=== PATIENT | female | born 1955 | race Caucasian/White ===

== ENCOUNTER 2017-10-27 06:20 | Inpatient (IN) | payer OTHER ==
[2017-10-14 08:50] LABS: ABSOLUTE BASOPHILS 0.1 thou/uL (0.0-0.2); ABSOLUTE EOSINOPHILS 0.1 thou/uL (0.0-0.7); ABSOLUTE LYMPHOCYTES 2.4 thou/uL (0.8-5.3); ABSOLUTE MONOCYTES 0.7 thou/uL (0.0-1.2); EOSINOPHILS 1.5 %; HEMATOCRIT 42.7 % (37.0-47.0); HEMOGLOBIN 14.2 gm/dL (12.0-15.0); LYMPHOCYTES 28.6 %; MCH 28.5 pg (26.0-34.0); MCHC 33.3 g/dL (28.0-37.0); MCV 85.7 fL (80.0-100.0); MONOCYTES 8.1 %; MPV 7.8 fl. (7.2-11.1); NUCLEATED RBCS 0 /100WBC; PLATELET COUNT* 269 thou/uL (150-400); POLYS 60.8 %; RBC 4.98 mil/uL (4.20-5.00); RDW-CV 15.4 % (10.5-14.5); WBC 8.2 thou/uL (4.0-11.0)
[2017-10-14 08:59] LABS: INR 1.1; PROTIME 10.4 Seconds (9.20-11.50)
[2017-10-14 09:03] LABS: ALBUMIN 3.4 g/dL (3.4-5.0); CREATININE 0.9 mg/dL (0.6-1.3); POTASSIUM 3.8 mmol/L (3.5-5.1); TOTAL BILIRUBIN 0.4 mg/dL (<0.1-1.0); TOTAL PROTEIN 7.4 g/dL (6.4-8.2)
[2017-10-14 10:16] LABS: ESR (SEDRATE) 25 mm/hr (0-30)
[2017-10-15 02:07] LABS: GLYCOHEMOGLOBIN (HGB A1C) 5.8 % (4.8-5.6)
--- NOTE | 2017-10-15 09:12 | EKG ---
[place] [address] ELECTROCARDIOGRAM REPORT Name: LI PEREZ Room: PRE IN [facility]#: [id number] Admission: Attend Phys: Luis Francisco Discharge: Date of : 53 Report #: [id number] THIS REPORT FOR: //name// [facility] Test Date: 2017-10-14 Test Time: 09:00:16 Pat Name: LI PEREZ Department: Room: Gender: F Hand Decorator: : 1955 Requested By: Gary Cruz Order Number: [id number] Callie MD: Rashid Son Measurements Intervals [place] Rate: 64 P: 2 IA: 161 QRS: -35 QRSD: 92 T: 10 QT: 438 QTc: 452 Interpretive Statements Sinus rhythm Left axis deviation Compared to ECG 03/07/2014 10:23:14 Left ventricular hypertrophy now present Sinus bradycardia no longer present Electronically Signed On 10-15-2017 9:11:58 CDT by Rashid Son [email or web address] <ELECTRONICALLY SIGNED> By: Rashid Son MD, [facility] 10/15/17910 9 9 Rashid Son MD, FACC /EPI
[~2017-10-27] VITALS: Ht 160 cm; Wt 149.2 kg
[~2017-10-27 06:20] MED LIST: ACETAMINOPHEN1 EACH PO; ASPIRIN325 PO; ATIVAN1 MG PO; COLACE100 MG PO; COZAAR 25 MG TA25 M1 PO; LOPRESSOR50 PO; MOBIC15 MG PO; NORCO 5-325 TA1 EACH PO; OXYCODONE HCL 55 MG PO; PAXIL10 MG PO; PEPCID20 MG PO; PROTONIX 20 MG20 M1 PO; SALONPAS PAIN118 ML TOP; TRAMADOL 50 MG50 MG PO; TUMS PO; XANAX 0.25 MG0.25 MG PO; XARELTO10 MG PO; [UNRECOGNIZED DRUG - OTHER]; [UNRECOGNIZED DRUG - OTHER] PO
[2017-10-27 08:45] VITALS: BP 151/85
[2017-10-27 16:00] VITALS: BP 136/90
--- NOTE | 2017-10-27 18:41 | NUR ---
ASSUMED CARES OF PT FROM PACU AT 1535. PT IN BED, BED IN LOW LOCKED POSITION, CALL BUTTON AND PERSONAL ITEMS IN PT REACH. PT SIGNIFICANT OTHER AT SIDE, WANTS TO STAY THE NIGHT. PT A&O X4, HRRR PER AUSCULTATION, LCTAB/DIMINISHED IN LL BILATERALLY. VSS ON 3L O2 NC, OCC TACHYCARDIAC HR. AFEBRILE, PERRLA, PAIN DIFFICULT TO CONTROL, SOME NAUSEA REPORTED, ZOFRAN ADMINISTERED. PEDAL AND RADIAL PULSES WNL, PITTING EDEMA LE BILATERALLY +1-2. 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 JADYN HOSE ON LEFT LEG, RIGHT LEG WRAPPED TO LARGE FOR JADYN HOSE AT THIS TIME. BILATERAL FOOT PUMPS IN PLACE. POLAR PACK IN PLACE ON RIGHT SURGICAL KNEE. LEFT 20 GAUGE FA IV PATENT WITH NS 100/ML/HR. ARNULFO WRAP ON SURGICAL RIGHT KNEE BY DR. GA. PT EXHIBITS ANXIETY OCC. HX HTN AND GERD. CONSULTS CM, SURGERY, OT, PT AND RT. REGULAR DIET. PT PRESENTLY RESTING IN BED, ASLEEP. WILL CONTINUE TO MONITOR AND REPORT TO STUDY LEAD FOR CONTINUED CARES. HOURLY ROUNDING COMPLETED.
[2017-10-27 21:30] VITALS: BP 152/94
--- NOTE | 2017-10-28 04:40 | NUR ---
PATIENT HAS BEEN SLEEPING OFF AND ON DURING THE NIGHT. PAIN MEDICATIONS GIVEN NEEDED AND CHARTED. VSS ON 3L 02 VIA NASAL CANNULA AND CAPNO IN PLACE. PATIENT REMAINS ON CONTACT ISOLATION D/T MRSA OF NARES. DRESSING TO RIGHT KNEE IS C/D/I, JADYN LATRICIAE, SCD'S AND POLAR CARE IN PLACE. IV IN LEFT FOREARM-NS @ 100ML/HR. IV ABT GIVEN WITHOUT ANY ADVERSE SIDE EFFECTS NOTED. PATIENT HAS HAD SOME SLIGHT NAUSEA WITH VERY SCANT AMOUNT OF EMESIS. IV ZOFRAN GIVEN. PATIENT INSTRUCTED TO USE CALL LIGHT WHEN NEEDING ASSISTANCE. HOURLY ROUNDS MADE. WILL CONTINUE WITH PLAN OF CARE AND NURSING TO [facility].
[2017-10-28 05:17] LABS: HEMOGLOBIN 12.4 gm/dL (12.0-15.0)
[2017-10-28 05:30] VITALS: BP 115/74
[2017-10-28 07:30] VITALS: BP 92/45
--- NOTE | 2017-10-28 09:34 | NUR ---
RECIEVED O.T. EVAL AND TX ORDERS. WILL DEFER TO P.T. AND NURSING AT THIS TIME. PLEASE ORDER FURTHER O.T. SERVICES IF NEEDED.
--- NOTE | 2017-10-28 11:39 | NUR ---
PT.UP IN RECLINER. SHE WAS ALERT AND ORIENTED. SHE LIVES WITH HER ,SOPHIE. SOPHIE WILL BE WITH HER THE FIRST WEEK AND PT.'S ADULT DAUGHTER WILL BE WITH HER THE SECOND. PT.HAS A WALKER,WHICH IS HERE IN ROOM. ALSO HAS A STOOL RISER AND SHOWER CHAIR. WANTS TO USE [facility] FOR HOME HEALTH THE FIRST 2 WEEKS AND THEN WANTS OUTPT.THERAPY. 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 SHE IS HAVING PROBLEMS WITH PAIN CONTROL THIS AM BUT SAID HER NURSE IS WONDERFUL AND IS ON TOP OF EVERYTHING. DISCUSSED BLOOD THINNER AND POLAR PACK WITH PT. CM WILL MAKE REFERRAL TO [facility] FOR HH.
[2017-10-28 16:47] VITALS: BP 116/50
--- NOTE | 2017-10-28 18:13 | NUR ---
ALERT AND ORIENTED X4. UP WITH ASSIST X1 WITH WALKER AND GAIT BELT. IV IS PATENT AND SALINE LOCKED. PAIN BEING MANAGED WITH PO PAIN MEDICATION. DENIES NAUSEA. ATTENDED THERAPY THIS AM AND PM. POLAR CARE IN PLACE. DRESSING C/D/I. VSS ON ROOM AIR. HOURLY ROUNDS HAVE BEEN MAINTAINED THROUGHOUT SHIFT. CALL LIGHT IS WITHIN REACH. NURSING WILL CONTINUE TO MONITOR.
[2017-10-28 20:00] VITALS: BP 146/59
[2017-10-29 00:24] VITALS: BP 110/49
--- NOTE | 2017-10-29 04:31 | NUR ---
PATIENT REMAINS ALERT AND ORIENTED THROUGHOUT SHIFT. VITAL SIGNS STABLE ON ROOM AIR. TRANSFERS WITH ASSIST OF ONE WITH THE GAITBELT AND WALKER. TOLERATING REGULAR DIET. POLAR PACK IN PLACE. MAINTAINED ISOLATION PRECAUTIONS. REPOSITIONING SELF IN BED. PAIN MANAGED WITH PO MEDICATION PER ORDERS. DENIES NAUSEA. IV PATENT IN THE LEFT FOREARM SALINE LOCKED. LEFT THIGH HIGH JADYN HOSE IN PLACE. BILATERAL FOOT SCD'S IN PLACE. RESTING COMFORTABLY THROUGHOUT NIGHT. HOURLY ROUNDING COMPLETE. FALL PRECAUTIONS IN PLACE. CALL LIGHT WITHIN REACH. NURSING WILL CONTINUE TO MONITOR.
[2017-10-29 04:41] VITALS: BP 155/65
[2017-10-29 08:00] VITALS: BP 122/62
[2017-10-29 16:11] VITALS: BP 128/67
--- NOTE | 2017-10-29 17:08 | NUR ---
PAIN MANAGEMENT PLAN MADE WITH PT AFTER DISCUSSING PAIN MEDS. EDUCATION ABOUT PAIN MEDS AND PAIN EXPECTATIONS AFTER SURGERY. PAIN IS NOW MANAGED WELL WITH ORDERED PAIN MEDS. PT UP WITH MIN ASSIST TO BSC USING WALKER AND GAIT BELT. DRESSING TO R KNEE CDI. POLAR PACK IN PLACE WHEN PT IN CHAIR OR BED. S.O. AT BEDSIDE. PT ABLE TO MAKE NEEDS KNOWN, CALL LIGHT IN REACH
[2017-10-29 20:00] VITALS: BP 119/73
[2017-10-29 23:50] VITALS: BP 114/50
[2017-10-30 03:54] VITALS: BP 129/69
--- NOTE | 2017-10-30 04:31 | NUR ---
PATIENT REMAINS ALERT AND ORIENTED X4 THROUGHOUT SHIFT. VITAL SIGNS STABLE ON ROOM AIR. TRANSFERS WITH ONE ASSIST WITH GAITBELT AND WALKER TO THE BEDSIDE COMMODE. REPOSITIONING SELF IN BED. POLAR PACK APPLIED TO RIGHT KNEE WITH BILATERAL THIGH HIGH JADYN HOSE IN PLACE. SPOUSE AT BEDSIDE. IV PATENT IN THE RIGHT FOREARM SALINE LOCKED. TOLERATING REGULAR DIET. PAIN MANAGED WITH PO MEDICATION PER ORDERS. DENIES NAUSEA. RESTING COMFORTABLY THROUGHOUT NIGHT. HOURLY ROUNDING COMPLETE. FALL PRECAUTIONS IN PLACE. BED IN LOW POSITION WITH BED ALARM ON. CALL LIGHT WITHIN REACH. NURSING WILL CONTINUE TO MONITOR.
[2017-10-30 07:30] VITALS: BP 119/68
[2017-10-30] MEDS ORDERED: ELIQUIS2.5 MG PO (11:54)
[2017-10-30] MEDS ORDERED: COLACE100 MG PO (11:59)
[2017-10-30] MEDS ORDERED: MIRALAX17 GM PO (12:00)
[2017-10-30] MEDS ORDERED: OXYCODONE HCL 55 MG PO (12:01)
[2017-10-30] MEDS ORDERED: TYLENOL325 MG PO (12:02)
[2017-10-30] MEDS ORDERED: METAMUCIL PACK3.4 GM PO (12:04)
[2017-10-30 12:05] VITALS: BP 119/68
--- NOTE | 2017-10-30 12:35 | NUR ---
CALLED IN PT.'S PRESCRIPTION FOR ELIQUIS WRITTEN TO PT.S PHARMACY. REQUIRED PRIOR AUTH. CALLED DONNA GIBBONS/SUE [phone]. RECEIVED PRIOR AUTH AND HE WILL SEND ON TO PT.'S PHARMACY. CM WILL CALL TO GET COPAY. NOTIFIED JOSELINE/HARJIT THAT PT. DISCHARGING TODAY AND FAXED ORDERS TO HER.
--- NOTE | 2017-10-30 14:30 | NUR ---
COPAY FOR VLAD PER PHARMACY WAS $35. PT.INFORMED. [facility]ED [facility] AND INFORMED HER PT.WAS DISCHARGING. PT.REQUESTED REBEKAH HER P.T. IT WAS WHO SHE HAD LAST TIME. JOSELINE LOOKED UP PT.AND SHE HAD JUDSON PREVIOUSLY. SHE WILL ASSIGN JUDSON TO HER. PT.READY FOR DISCHARGE. S.O. HERE TO DRIVE PT.HOME.
[2017-10-30] MEDS ORDERED: ASPIRIN325 PO (14:39)
--- NOTE | 2017-10-30 17:55 | NUR ---
PATIENT LEFT UNIT AT 1430. ALERT AND ORIENTED X4. UP WITH ASSIST X1-2 WITH WALKER AND GAIT BELT. IV DC'D. PAIN BEING MANAGED WITH PO PAIN MEDICATION. DENIES NAUSEA. ATTENDED THERAPY THIS AM AND PM. ALL PERSONAL ITEMS LEFT WITH PATIENT. DISCHARGE INSTRUCTIONS, PRESCRIPTIONS, AND NEW MEDICATION INFORMATION SENT WITH PATIENT. VSS ON ROOM AIR. HOURLY ROUNDS HAVE BEEN MAINTAINED THROUGHOUT SHIFT. LEFT WITH SPOUSE VIA CAR.
[2017-10-30 18:01] VITALS: BP 119/68
--- NOTE | 2017-11-09 22:24 | OP ---
[address] [address] OPERATIVE REPORT Name: LI PEREZ Room: [address]#: [id number] Admission: 10/27/17 Attend Phys: Luis Francisco Discharge: 10/30/17 Date of : 53 Report #: [id number] THIS REPORT FOR: //name// CC: Gary Deal DATE OF SERVICE: 10/27/2017 PREOPERATIVE DIAGNOSIS: Advanced degenerative joint disease, right knee. POSTOPERATIVE DIAGNOSIS: Advanced degenerative joint disease, right knee. PROCEDURE: Right total knee arthroplasty. SURGEON: Gary Cruz DO. ASSOCIATE FINANCIAL REPRESENTATIVE: DO Roxi. ESTIMATED BLOOD LOSS: 150 mL. TOURNIQUET TIME: Approximately 1 hour. COMPLICATIONS: None. DRAINS: None. SPECIMEN REMOVED: None. ORTHOPEDIC IMPLANTS: Biomet Vanguard total knee system. 1. Size 57.5 posterior stabilized femur. 2. Size 71 tibial baseplate. 3. 31 mm 3 pegged asymmetrical patella. 4. 10 mm polyethylene spacer posterior stabilized. 5. Two bags of Palacos bone cement plain. CONDITION OF PATIENT: Stable to PACU. ANESTHESIA: General with local block. ANTIBIOTICS: 3 g Ancef IV preoperatively. INDICATIONS FOR PROCEDURE: The patient is a pleasant 62-year-old female, seen in my clinic regarding chronic right knee pain. She unfortunately failed conservative treatment including anti-inflammatory medications and multiple steroid injections. X-rays were consistent with severe end-stage degenerative [facility] [address] [place] [address] OPERATIVE REPORT Name: LI PEREZ Katja Room: [address] IN .[place].#: [id number] Admission: 10/27/17 Attend Phys: Luis Francisco Discharge: 10/30/17 Date of : 53 Report #: [id number] joint disease. She had a previous left total knee arthroplasty done by Dr. Fregoso approximately 3 years ago, and she has done well with this. The pain was interfering with activities of daily living and quality of life. Due to her failed conservative treatment, I recommended right total knee arthroplasty. I discussed procedure, risks, benefits, complications and indications in detail with her. Risks discussed including but not limited to infection, neurovascular injury, hardware failure, fracture, arthrofibrosis, no improvement in symptoms, DVT, PE and anesthesia complications. She did express understanding and wished to proceed with surgery. DESCRIPTION OF PROCEDURE: After consent was obtained, the patient was taken to the operative suite and placed in the supine position on the operating room table. She was given benefit of general anesthesia. A well-padded tourniquet was placed on the right upper thigh. Right leg was sterilely prepped and draped in usual fashion. Preop timeout was obtained to confirm the correct patient, procedure and operative site. Surgery began with elevation of leg. Tourniquet inflated to 300 mmHg, was inflated for approximately one hour throughout the procedure. A standard anterior knee midline incision was made. Sharp dissection was taken down to the level of capsule. New knife was used and a medial parapatellar arthrotomy was performed. Normal appearing joint effusion was encountered. The patella was everted. Hohmann retractors were placed at all times to protect collateral ligaments. She did have a severely eburnated bone throughout all 3 compartments with osteophytes throughout. These were removed with a rongeur. Femoral drill was used to open the femoral canal. T-handle intramedullary rods were placed measuring 5-degree valgus cut. The distal femoral cut was made to the captured block. Attention was then turned to the tibia. External tibial guide was utilized, measuring 10 mm high lateral side. Proximal tibial cut was made through the captured block. Knee was taken through extension, 10 block was used to ensure adequate resection. The knee was again flexed. AP sizer was utilized, distal femur measured a size 57.5. Two ship pilot holes were drilled in 3 degrees of external rotation. The size 57.5 4-in-1 cutting block was then pinned in place. The anterior and posterior condylar cuts were then made as well as chamfer cuts. The proximal tibia was then exposed, this measured size 71, size 71 tibial trial was pinned in place in appropriate rotation. The trial femur was placed after box cut was made. Size 10 spacer was placed. Knee was taken through range of motion. She had full flexion and extension limited by her soft tissues, with stable varus valgus testing throughout range of motion. The patella was everted. Posterior patellar cut was made using freehand technique, this measured size 31. 3 peg holes were drilled, size 31 button was placed. Knee was taken through range of motion. The patella did track well. At this time, the proximal tibia was opened with a drill and punch. All trial components were removed. Posterior osteophytes were removed with a curved osteotome. The knee was then thoroughly irrigated with pulsatile lavage and dried with a clean lap sponge. [address] [address] OPERATIVE REPORT Name: LI PEREZ Room: [address] [place] .[place].#: [id number] Admission: 10/27/17 Attend Phys: Terry MaycoLuis Glynn Discharge: 10/30/17 Date of : 53 Report #: [id number] Final components were opened. Cement was mixed, placed on the final components and exposed bone. These were then impacted in place. Excess cement was removed. A size 10 spacer was placed. Knee was taken through extension. Axial compression was applied, there was cement hardened. Once the cement hardened, trial reduction was performed and a final size 10 spacer was chosen. This was placed on a clean tibial tray and locked in place with locking bar. The knee was taken through final range of motion. She had full flexion/extension, again limited by her soft tissues. No instability with varus valgus testing and equal flexion and extension gaps. The patella did track well. The knee was thoroughly irrigated. Ortho cocktail was injected. Tourniquet was allowed to deflate. Hemostasis was achieved with electrocautery and direct pressure. Capsular tissue was closed with #1 Vicryl in [id number] fashion. PRP was injected into the capsule. The subcutaneous tissue was thoroughly irrigated and then closed with 2-0 Vicryl in inverted interrupted fashion, followed by running Monocryl stitch on the skin. This covered with Dermabond, was allowed to dry, SilvaSorb dressing, 4 x 4s, ABD pad, soft roll and Eber bandage. She did tolerate the procedure well without complication. She was taken to recovery in stable condition. All needle, sponge counts correct x 2 at the end of the procedure. <ELECTRONICALLY SIGNED> By: Gary Cruz DO 11/09/17 2224 [id number] Yessi Cruz DO /nt
== END 2017-10-30 14:00 | disposition home health service (06) | DRG 470 ==
LOC: M.PRE 06:20 → M.TBA 08:13 → M.ORTHSURG 08:13 → M.PRE 09:07 → M.ORTHSURG 16:16 → M.PRE 11-05 13:53
PROVIDERS: Orthopaedic Surgery; ADMIT Internal Medicine
PROC: 0SRC0J9 Replacement of Right Knee Joint with Synthetic Substitute, Cemented, Open Approach (ICD-10-PCS; principal; 2017-10-27)
DX: M17.11 Unilateral primary osteoarthritis, right knee (principal); Z68.43 Body mass index [BMI] 50.0-59.9, adult; I10 Essential (primary) hypertension; Z96.652 Presence of left artificial knee joint; E78.5 Hyperlipidemia, unspecified; F41.9 Anxiety disorder, unspecified; K21.9 Gastro-esophageal reflux disease without esophagitis; E66.9 Obesity, unspecified; K59.00 Constipation, unspecified; Z79.899 Other long term (current) drug therapy; Z88.2 Allergy status to sulfonamides